=== PATIENT | female | born 1990 | race African-American/Black ===

== ENCOUNTER → 2016-11-07 | Day surgery (SDC) | payer OTHER ==
[~2016-11-07] VITALS: Ht 166.4 cm; Wt 65.8 kg
[2016-11-07] VITALS (13 sets, daily range): BP systolic 111–141; BP diastolic 58–82
[~2016-11-07] MED LIST: ALEVE220 MG PO; Bacitracin 50000 Units Vial ONE; Bupivacaine w/Epi 0.25% 30ml Vial INJ ONE; D5 1/2NS 1,000 ML IV SCH; Glycopyrrolate 0.2mg/ml 1ml Vial ONE; Hydromorphone 0.5mg/0.5ml inj IVP PRN; LR 1000ml 1,000 ML IVLG SCH; LR 1000ml ONE; Lidocaine 1% 10mg/ml/Epi 0.005mg/ml 30ml vial INJ ONE; Midazolam 2mg/2ml Inj ONE; Morphine Sulfate 2mg/ml Inj IVP PRN; NS Irrig 1000ml IRRIG ONE; Neostigmine 1mg/ml 10ml Inj ONE; Norco 5mg/325mg tab ORAL PRN; Propofol 10mg/ml 20ml IV ONE; Ropivacaine 5mg/ml Vial 20ml INJ ONE; Sterile Water Irrig 1000ml IRRIG ONE; Zemuron 50mg/5ml Inj IV ONE; ceFAZolin 1gm/50ml Premix 50 ML IV ONE; celeBREX 200mg Cap **SURGERY PATIENTS ONLY ORAL ONE; fentaNYL 100 mcg/2 mL IV ONE; oxyCONTIN 20mg tab ORAL ONE
--- NOTE | 2016-11-07 08:40 | Pre-Procedure Note/Attestation ---
Pre-Procedure Note/Attestation Complete Prior to Procedure Planned Procedure: left Procedure Narrative: clavicle orif Indications for Procedure Pre-Operative Diagnosis: left clavicle nonunion/malunion Attestation I attest that I discussed the nature of the procedure; its benefits; risks and complications; and alternatives (and the risks and benefits of such alternatives ), prior to the procedure, with the patient (or the patient's legal patient support representative). I attest that, if there was a reasonable possibility of needing a blood transfusion, the patient (or the patient's legal patient support representative) was given the [facility] standardized written summary, pursuant to the [place] Blood Safety Act ([place] Health and Safety Code # 1645, as amended). I attest that I re-evaluated the patient just prior to the surgery and that there has been no change in the patient's H&P, except as documented below: FREDDIE DOYLE Nov 07, 2016 08:40
--- NOTE | 2016-11-07 08:41 | Operative Note - PDOC ---
Operative Note Operative Note Pre-op Diagnosis: left clavicle nonunion/malunion Procedure: orif left clavicle Post-op Diagnosis: same as pre-op plus Operative Findings: consistent w/pre-op dx studies Anesthesia: general Specimen: none Complications: none Condition: stable Estimated Blood Loss: none Implant(s) used?: Yes FREDDIE DOYLE Nov 07, 2016 08:41
--- NOTE | 2016-11-07 11:03 | Immediate Post-Op Evaluation ---
Immediate Post-Op Evalulation Immediate Post-Op Evalulation Procedure: ORIF left clavicle Date of Evaluation: Nov 07, 2016 Time of Evaluation: 11:01 IV Fluids: 900ml Blood Products: none Estimated Blood Loss: minimal Urinary Output: due to void Blood Pressure Systolic: 136 Blood Pressure Diastolic: 74 Pulse Rate: 100 Respiratory Rate: 16 O2 Sat by Pulse Oximetry: 100 Temperature (Fahrenheit): 98 Pain Score (1-10): 0 Nausea: No Vomiting: No Complications none Patient Status: awake, reacts Hydration Status: adequate Drug: ancef 1gm Given Within 1 Hr of Incision: Yes Time Given: 09:10 CANDI MENDEZ D.O. Nov 07, 2016 11:03
--- NOTE | 2016-11-07 11:07 | Anethesia Preoperative Eval ---
Anesthesia Pre-op PMH/ROS General Date of Evaluation: Nov 07, 2016 Time of Evaluation: 08:30 Anesthesiologist: Jaleel ASA Score: ASA 2 Mallampati Score Class I : Soft palate, uvula, fauces, pillars visible Class II: Soft palate, uvula, fauces visible Class III: Soft palate, base of uvula visible Class IV: Only hard plate visible Mallampati Classification: Class II Surgeon: Vidal Diagnosis: left clavicle fracture Surgical Procedure: ORIF left clavicle Anesthesia History: none Social History: alcohol use Allergies: Coded Allergies: No Known Allergies (Unverified , 11/06/16) Medications: see eMAR Past Medical History Cardiovascular: Denies: CAD, HTN, [place], arrhythmia, other, valve dz Pulmonary: Reports: asthma Gastrointestinal/Genitourinary: Denies: CRI, ESRD, GERD, other Neurologic/Psychiatric: Denies: CVA, TIA, dementia, depression/anxiety, other Endocrine: Denies: DM, hypothyroidism, other, steroids HEENT: Denies: [place] (L), [place] (R), cataract (L), cataract (R), glaucoma, other Hematology/Immune: Reports: anemia Musculoskeletal/Integumentary: Denies: DDD, DJD, OA, RA, edema, other PMH Narrative: anemia, asthma PSxH Narrative: right wrist sx Anesthesia Pre-op Phys. Exam Physician Exam Last Vital Signs Date Time Temp Pulse Resp B/P Pulse Ox O2 Delivery O2 Flow Rate FiO2 11/07/16 07:29 98.1 71 20 111/67 100 Room Air Constitutional: NAD Neurologic: CN 2-12 intact Cardiovascular: RRR Respiratory: CTA Gastrointestinal: S/NT/ND Airway Exam Mallampati Score: Class II MO: full ROM: full Teeth: intact Dentures: no lower, no upper Anesthesia Pre-op A/P Labs Urine Test Test 11/07/16 07:10 Urine HCG, Qualitative Negative CANDI MENDEZ D.O. Nov 07, 2016 11:07
--- NOTE | 2016-11-07 14:25 | 48 Hour Post Anesthesia Eval ---
Post Anesthesia Evaluation Procedure: ORIF left clavicle Date of Evaluation: Nov 07, 2016 Time of Evaluation: 11:11 Blood Pressure Systolic: 130 0: 70 Pulse Rate: 66 Respiratory Rate: 16 Temperature (Fahrenheit): 98 O2 Sat by Pulse Oximetry: 98 Airway: patent Nausea: No Vomiting: No Pain Intensity: 0 Hydration Status: adequate Cardiopulmonary Status: stable Mental Status/LOC: patient returned to baseline Follow-up Care/Observations: as per surgeon Post-Anesthesia Complications: none Follow-up care needed: N/A CANDI MENDEZ D.O. Nov 07, 2016 14:24
--- NOTE | 2016-11-07 16:52 | Diagnostic Imaging Report ---
Indication: Fracture, intraoperative Technique: Digital intraoperative images Comparison: Surgical sideplate and screws seen Findings: There is a surgical sideplate and screws seen reducing midshaft clavicular fracture Impression: Intraoperative imaging, as described
--- NOTE | 2016-11-08 01:27 | Operative Note - Dictated ---
DATE OF OPERATION: 11/07/2016 PREOPERATIVE DIAGNOSIS: Left clavicle malunion, possible nonunion. POSTOPERATIVE DIAGNOSIS: Left clavicle malunion. PROCEDURES: 1. Left clavicle open reduction and internal fixation to the osteotomy. 2. Left clavicle malunion. SURGEON: Gilles Drake M.D. ANESTHESIA: General with interscalene. INDICATION FOR PROCEDURE: The patient is a pleasant female, who had a significant displaced fracture of the left clavicle. She subsequently tried conservative treatment and it healed with significant prominence making it difficult for her to feel comfortable. She was cosmetically also very prominent. Given the shortened prominence and may be difficult to perform activities of living, elected to undergo osteotomy and open reduction and internal fixation of the left clavicle. Perioperatively, CT scan showed an significant deformity and malunion of the clavicle. At this point, risks, limitations, expectations, and complication of the procedure including nonunion, malunion, need for future surgery, hardware failure, risk of anesthesia, nerve damage, bleeding particularly those osteotomies were all discussed in detail. All questions addressed. DESCRIPTION OF PROCEDURE: An informed consent was obtained. The patient was brought to the operating room and placed under general interscalene anesthesia. The patient was then placed in the beach-chair position. The skin was incised. Medial and lateral subcutaneous flaps were created. The distal aspect of the proximal fragment of the clavicle was identified. Blunt dissection down to the clavicle was performed. Under direct vision, staying direct on bone, the trapezius fascia was removed. Once this was done, there was a significant curve to the nonunion. The oblique osteotomy of the most proximal fragment was performed to try to get the length out and correction of the anterior posterior displacement as well. The longest plate was selected and another second osteotomy was performed again to correct the anterior posterior displacement as well as the displacement and shortening. Osteotomies were created using drill holes, which were connected by osteotome. An oblique osteotomy was performed to provide adequate coverage or enough surface area for healing. Of note, at the most distal aspect of the clavicle, there was a concern that performing a third osteotomy would potentially minimize the amount of bone available for fixation of the distal clavicle portion. Therefore, it is felt that the two osteotomies to correct as much of the anterior and posterior displacement was adequate. Once the plate was selected and the bone was reduced with plate, multiple screws were placed. There was still slight superior displacement of the lateral fragment, but given the potential with third osteotomy that was needed, it was felt that this was a adequate fixation. The length radiographically was almost recreated may have been short by centimeter, but the only way to correct that would be performing an osteotomy and that would help provide less bone for fixation in the most distal aspect of the clavicle. At this point, bone graft with any bone that was removed and Craighead putty was placed along the osteotomy sites. Trapezius fascia was closed with #1 Vicryl suture, 2-0 Vicryl suture, and 3-0 Monocryl suture. Dermabond and compression dressing was applied. The patient was awoken and taken to recovery room with stable vital signs. ESTIMATED BLOOD LOSS: 50 mL. COMPLICATIONS: None. SPECIMENS: None. IMPLANTS: Include a Raina clavicle plate with multiple screws, Craighead putty, as well as the bone graft osteotomy, as well as drilling use. Gilles Drake M.D. DR: MATY JOB#: [id number] CC: CHEMO
== END | disposition home or self-care (01) ==
LOC: SUR 06:53
DX: S42.022A Displaced fracture of shaft of left clavicle, initial encounter for closed fracture (principal); V48.9XXA Unspecified car occupant injured in noncollision transport accident in traffic accident, initial encounter; Y92.410 Unspecified street and highway as the place of occurrence of the external cause; Y99.9 Unspecified external cause status; D64.9 Anemia, unspecified; J45.909 Unspecified asthma, uncomplicated
CPT/HCPCS: 23515; 73000; 76001; 81025; C1713; J0690; J1170; J2250; J2405; J2704; J2710; J2795; J3010; J7120; 94003; 94150